=== PATIENT | female | born 1980 | race Two or more races ===

== ENCOUNTER 2024-03-13 05:45 | Day surgery (SDC) | payer OTHER ==
[2024-03-05 09:28] VITALS: BP 111/76
[2024-03-05 10:01] LABS: URINE APPEARANCE Clear; URINE BACTERIA 602.2 uL (0.0-1933); URINE BILIRRUBIN Negative (NEGATIVE); URINE BLOOD Moderate; URINE COLOR Yellow; URINE EPITHELIAL CELLS 35.9 uL (0.0-38.8); URINE GLUCOSE Negative (NEGATIVE); URINE KETONE Negative (NEGATIVE); URINE LEUKOCYTE Negative; URINE NITRATE Negative; URINE PROTEIN Negative (NEGATIVE); URINE UROBILINOGEN 0.2 E.U./dl
[2024-03-05 10:01] LABS: INR 1.01; PARTIAL THROMBOPLASTIN TIME 24.9 SECONDS (22.0-34.0)
[2024-03-05 10:06] LABS: HEMATOCRIT 30.6 % (36.0-45.00); MEAN CORPUSCULAR HGB CONC 31.9 g/dl (32.0-36.0); PLATELET COUNT 255 K/uL (150-450); RED BLOOD COUNT 4.44 M/uL (4.00-6.00); RED CELL DISTRIBUTION WIDTH 17.8 % (11.5-14.5)
[2024-03-05 10:11] LABS: HEMOGLOBIN 9.8 g/dL (12.0-15.00); MEAN CELL VOLUME 68.9 fL (80.00-100.00)
[2024-03-05 10:42] LABS: ALBUMIN 4.1 gm/dL (3.4-5.0); BILIRUBIN TOTAL 0.51 mg/dL (0.3-1.2); CREATININE SERUM 0.64 mg/dL (0.55-1.02); GFR 100.35; GLOBULINA 3.2 G/DL (2.4-3.5); POTASSIUM 4.32 mEq/L (3.5-5.1); TOTAL PROTEIN 7.3 gm/dL (6.4-8.2)
[~2024-03-13] VITALS: Ht 157.5 cm; Wt 61.2 kg
[~2024-03-13 05:45] MED LIST: VITAMIN D310 MC4
[2024-03-13] MEDS ORDERED: POVIDONE-IODINE 118 ML BOTT TOP ONE (15:45)
[2024-03-13] MEDS ORDERED: CEFAZOLIN SODIUM 1,000 MG VIAL IV ONE (15:45)
[2024-03-13] MEDS ORDERED: NAPROXEN500 MG PO (16:30)
[2024-03-13] MEDS ORDERED: DOXYCYCLINE HY100 M2 PO (16:30)
== END 2024-03-13 20:00 | disposition home or self-care (01) ==
LOC: CIR.AMB 05:45
PROVIDERS: ATTEND Obstetrics & Gynecology
DX: D25.0 Submucous leiomyoma of uterus (principal); N92.0 Excessive and frequent menstruation with regular cycle; N84.0 Polyp of corpus uteri